=== PATIENT | male | born 1975 | race Caucasian/White ===

== ENCOUNTER 2019-03-09 08:02 | Emergency (ER) | payer OTHER ==
[~2019-03-09] VITALS: Ht 172.7 cm; Wt 97.5 kg
[2019-03-09] MEDS ORDERED: NORFLEX100MG PO (11:34)
[2019-03-09] MEDS ORDERED: KETO10TA2 PO (11:34)
== END 2019-03-09 12:09 | disposition home or self-care (01) ==
LOC: ER 08:02
DX: S90.01XA Contusion of right ankle, initial encounter (principal); S70.01XA Contusion of right hip, initial encounter; M54.5 Low back pain; W18.09XA Striking against other object with subsequent fall, initial encounter; Y93.89 Activity, other specified; Y92.098 Other place in other non-institutional residence as the place of occurrence of the external cause; Y99.8 Other external cause status